=== PATIENT | female | born 1995 | race Caucasian/White ===

== ENCOUNTER 2024-11-16 13:06 | Emergency (ER) | payer MEDICAID ==
[~2024-11-16] VITALS: Ht 160 cm; Wt 98.0 kg
[2024-11-16 13:12] VITALS: O2SAT 100
[2024-11-16 15:48] LABS: TROPONIN I HIGH SENSITIVITY < 4 ng/L (3.0-34)
[2024-11-16 16:06] VITALS: BP 130/81; PULSE 72; RESP 14; TEMP 36.8; O2SAT 100
== END 2024-11-16 16:11 | disposition home or self-care (01) ==
LOC: ER 13:06
DX: R07.89 Other chest pain (principal); R06.02 Shortness of breath
CPT/HCPCS: 84484; 36415; 93005; 99284; Z7610